=== PATIENT | male | born 1940 | race Hispanic/Latino ===

== ENCOUNTER 2021-10-01 12:33 | Inpatient (IN) | payer OTHER, MEDICARE ==
[2021-10-01] VITALS (13 sets, daily range): BP systolic 118–163; BP diastolic 44–90
[~2021-10-01] VITALS: Ht 167.6 cm; Wt 66.5 kg
[2021-10-01] MEDS ORDERED: 0.9%NACL 1000ML 1,000 ML IV SCH ×2 (13:00→15:00)
[2021-10-01 13:30] LABS: POTASSIUM 4.9 mmol/L (3.5-5.1)
[2021-10-01 13:34] LABS: ALBUMIN 2.9 g/dL (3.5-5.0); TOTAL PROTEIN, SERUM 6.5 g/dL (6.0-8.3)
[2021-10-01 13:36] LABS: INR 0.99 (0.85-1.15); PROTHROMBIN TIME 10.8 SEC (9.6-11.6)
[2021-10-01 13:38] LABS: PARTIAL THROMBOPLASTIN TIME 41.9 SEC (26.3-35.5)
[2021-10-01 13:39] LABS: BASOPHILS % (AUTO) 0.3 % (0.0-5.0); EOSINOPHILS % (AUTO) 0.1 % (0.0-8.0); HEMATOCRIT 31.9 % (42-54); LYMPHOCYTES % (AUTO) 6.1 % (21.0-51.0); MEAN CORPUSCULAR HGB CONC 32.6 g/dL (32.0-36.0); MEAN CORPUSCULAR VOLUME 88.9 fL (79-99); MONOCYTES % (AUTO) 10.8 % (3.0-13.0); NEUTROPHILS % (AUTO) 80.2 % (40.0-77.0); PLATELET COUNT (AUTO) 264 K/uL (130-400); RED BLOOD CELL COUNT(AUTO) 3.59 MIL/uL (4.50-6.20); WHITE BLOOD COUNT (AUTO) 23.6 K/uL (4.8-10.8)
[2021-10-01] MEDS ORDERED: NITROGLYCERIN 1GM OINT 1 INCH/1GM TD ONE (14:00)
[2021-10-01] MEDS ORDERED: ASPIRIN 325MG TAB PO ONE (14:00)
[2021-10-01] MEDS ORDERED: CEFTRIAXONE 1G VIAL IVP ONE (14:00)
[2021-10-01] MEDS ORDERED: ASPIRIN 325MG TAB ONE (14:10)
[2021-10-01] MEDS ORDERED: CEFTRIAXONE 1G VIAL ONE (14:10)
[2021-10-01 14:26] LABS: ABG BASE EXCESS -12.6 mmol/L (-2.0-3.0); ABG HCO3 12.5 mmol/L (21.0-28.0); ABG OXYGEN SATURATION 95.9 % (95.0-99.0); ABG PCO2 26 mmHg (35-48)
[2021-10-01] MEDS ORDERED: PANTOPRAZOLE 40 MG/VIAL IVP ONE (15:00)
[2021-10-01] MEDS ORDERED: ACETAMINOPHEN 650 MG SUPPOSITORY RC PRN (15:00)
[2021-10-01] MEDS: SODIUM BICARB 8.4% 50ML SYRINGE IVP SCH (15:00)
[2021-10-01] MEDS ORDERED: ONDANSETRON 4MG INJ IVP PRN (15:00)
[2021-10-01] MEDS ORDERED: 0.9%NACL 1000ML 1,275 ML IV ONE (15:00)
[2021-10-01] MEDS ORDERED: NOREPINEPHRIN 4MG/NS 250ML 250 ML IV PRN (15:00)
[2021-10-01] MEDS ORDERED: SODIUM BICARB 50MEQ 50ML VIAL 100 ML ONE (15:10)
[2021-10-01] MEDS: CEFEPIME HCL 1 GM VIAL IVP SCH (15:27)
[2021-10-01 15:30] LABS: APPEARANCE,URINE CLOUDY (CLEAR); BILIRUBIN,URINE NEGATIVE (NEGATIVE); COLOR,URINE YELLOW (YELLOW); GLUCOSE, URINE (UA) NEGATIVE (NEGATIVE); KETONES,URINE NEGATIVE (NEGATIVE); LEUKOCYTE ESTERASE ,URINE MODERATE (NEGATIVE); NITRATE,URINE NEGATIVE (NEGATIVE); OCCULT BLOOD,URINE LARGE (NEGATIVE); PH,URINE 5.5 (5.0-8.0); PROTEIN,URINE TRACE mg/dL (NEGATIVE); UROBILINOGEN,URINE 0.2 mg/dL (0.2-1.0)
[2021-10-01 15:49] LABS: BACTERIA,URINE Moderate /HPF (None Seen); MUCUS,URINE Few LPF (None Seen); SQUAMOUS EPITHELIAL CELL,UR Few /HPF (0-2); WBC,URINE 26-50 /HPF (0-1)
[2021-10-01] MEDS ORDERED: SODIUM BICARB 8.4% 50ML SYRING 150 MEQ in DEXTROSE 5%-WATER 1,000 ML IVP SCH (17:00)
[2021-10-01] MEDS: 0.9%NACL 1000ML 1,000 ML IV SCH ×2 (17:10→18:13)
[2021-10-01 17:58] LABS: CREATININE,URINE RANDOM 34 mg/dL (30-135); SODIUM,URINE RANDOM 50 mmol/l (40-220)
[2021-10-01 21:19] LABS: ABG BASE EXCESS -11.1 mmol/L (-2.0-3.0); ABG HCO3 13.5 mmol/L (21.0-28.0); ABG OXYGEN SATURATION 86.8 % (95.0-99.0); ABG PCO2 26 mmHg (35-48)
[2021-10-01] MEDS ORDERED: IPRATROPIUM 0.5 MG/2.5 ML INH IH ONE (21:22)
[2021-10-01] MEDS: TAMSULOSIN HCL 0.4 MG CAP.ER.24H PO SCH (21:44)
[2021-10-01] MEDS: METRONIDAZOLE 500MG/100ML BAG 100 ML IVPB SCH (21:45)
[2021-10-01] MEDS ORDERED: SODIUM BICARB 50MEQ 50ML VIAL IV ONE (22:00)
[2021-10-01] MEDS ORDERED: ALBUTEROL 0.083% 2.5 MG/3 ML INH IH SCH (22:00)
[2021-10-01] MEDS ORDERED: FUROSEMIDE 40MG VIAL IV ONE (22:00)
[2021-10-01] MEDS ORDERED: ZIPRASIDONE MESYLATE 20 MG/VIAL IM ONE (22:10)
[2021-10-01] MEDS ORDERED: IPRATROPIUM 0.5 MG/2.5 ML INH IH SCH (23:00)
[2021-10-01] MEDS ORDERED: SOLU-MEDROL 125MG VIAL IVP ONE (23:00)
[2021-10-01] MEDS ORDERED: SOLU-MEDROL 125MG VIAL ONE (23:30)
[2021-10-01] MEDS: ACETAMINOPHEN 325 MG TAB PO PRN (23:35)
[2021-10-01] MEDS ORDERED: IPRATROPIUM/ALBUTEROL SULFATE 3 ML SOLUTION IH PRN (23:45)
[2021-10-02] VITALS (71 sets, daily range): BP systolic 100–165; BP diastolic 34–114
[2021-10-02] MEDS ORDERED: IPRATROPIUM 0.5 MG/2.5 ML INH IH SCH
[2021-10-02 02:07] LABS: ABG BASE EXCESS -1.7 mmol/L (-2.0-3.0); ABG HCO3 21.2 mmol/L (21.0-28.0); ABG OXYGEN SATURATION 98.6 % (95.0-99.0); ABG PCO2 30 mmHg (35-48)
[2021-10-02] MEDS ORDERED: 0.9%NACL 1000ML 1,000 ML IV SCH (03:30)
[2021-10-02] MEDS: CEFEPIME HCL 1 GM VIAL IVP SCH ×2 (03:42→17:05)
[2021-10-02 04:43] LABS: BASOPHILS % (AUTO) 0.2 % (0.0-5.0); EOSINOPHILS % (AUTO) 0.2 % (0.0-8.0); HEMATOCRIT 30.1 % (42-54); LYMPHOCYTES % (AUTO) 1.3 % (21.0-51.0); MEAN CORPUSCULAR HEMOGLOBIN 29.2 pg (27.0-33.0); MEAN CORPUSCULAR HGB CONC 33.2 g/dL (32.0-36.0); MONOCYTES % (AUTO) 2.9 % (3.0-13.0); NEUTROPHILS % (AUTO) 94.5 % (40.0-77.0); PLATELET COUNT (AUTO) 254 K/uL (130-400); RED BLOOD CELL COUNT(AUTO) 3.42 MIL/uL (4.50-6.20)
[2021-10-02] MEDS: SOLU-MEDROL 40MG VIAL IVP SCH ×4 (04:46→21:59)
[2021-10-02] MEDS: METRONIDAZOLE 500MG/100ML BAG 100 ML IVPB SCH ×3 (04:58→21:58)
[2021-10-02 05:06] LABS: CREATININE 3.8 mg/dL (0.5-1.5); MAGNESIUM 1.7 mg/dL (1.80-2.40); PHOSPHORUS 4.5 mg/dL (2.5-4.9); POTASSIUM 3.5 mmol/L (3.5-5.1); THYROID STIMULATING HORMONE 3.4 uIU/mL (0.36-3.74)
[2021-10-02 05:13] LABS: % IRON SATURATION 7.3 % (30-44)
[2021-10-02 05:17] LABS: BAND NEUTROPHILS % (MANUAL) 23 % (0-2); LYMPHOCYTES % (MANUAL) 4 % (22-44); MAN.DIFF COMMENT-IMPRESSION MANUAL DIFFERENTIAL; MONOCYTES % (MANUAL) 1 % (2-9); PLATELET MORPHOLOGY COMMENT ADEQUATE; SEGMENTED NEUTROPHILS % 72 % (40-70)
[2021-10-02] MEDS: MAGNESIUM 2GM PREMIX 50ML 50 ML IV SCH (06:17)
[2021-10-02] MEDS: PANTOPRAZOLE 40 MG/VIAL IVP SCH (08:32)
[2021-10-02] MEDS: ENOXAPARIN SODIUM 30 MG/0.3 ML SQ SCH (08:33)
[2021-10-02] MEDS: SODIUM BICARB 8.4% 50ML SYRINGE IVP SCH (15:00)
[2021-10-02] MEDS: TAMSULOSIN HCL 0.4 MG CAP.ER.24H PO SCH (20:01)
[2021-10-03] VITALS (30 sets, daily range): BP systolic 103–155; BP diastolic 38–78
[2021-10-03] MEDS: CEFEPIME HCL 1 GM VIAL IVP SCH ×2 (02:43→13:34)
[2021-10-03 04:12] LABS: HEMATOCRIT 28.4 % (42-54); MEAN CORPUSCULAR HEMOGLOBIN 29.1 pg (27.0-33.0); MEAN CORPUSCULAR HGB CONC 32.7 g/dL (32.0-36.0); MEAN CORPUSCULAR VOLUME 88.8 fL (79-99); RED BLOOD CELL COUNT(AUTO) 3.2 MIL/uL (4.50-6.20); RED CELL DISTRIBUTION WIDTH 14.1 % (11.0-15.5)
[2021-10-03 04:38] LABS: CREATININE 3.5 mg/dL (0.5-1.5); MAGNESIUM 2.6 mg/dL (1.80-2.40)
[2021-10-03 04:40] LABS: WHITE BLOOD COUNT (AUTO) 37.3 K/uL (4.8-10.8)
[2021-10-03] MEDS: METRONIDAZOLE 500MG/100ML BAG 100 ML IVPB SCH ×3 (05:04→21:54)
[2021-10-03] MEDS: SOLU-MEDROL 40MG VIAL IVP SCH ×3 (05:04→15:30)
[2021-10-03] MEDS ORDERED: INSULIN HUMULIN R 100 UNIT/ML 3ML ONE (05:34)
[2021-10-03] MEDS: INSULIN HUMULIN R 100 UNIT/ML 3ML SQ SCH ×4 (05:38→21:56)
[2021-10-03] MEDS: PANTOPRAZOLE 40 MG/VIAL IVP SCH (10:39)
[2021-10-03] MEDS: ENOXAPARIN SODIUM 30 MG/0.3 ML SQ SCH (10:40)
[2021-10-03] MEDS ORDERED: LEVOFLOXACIN 500 MG/D5W 100 ML 100 ML IV SCH (11:30)
[2021-10-03] MEDS: PHARMACY COMMUNICATION MISC SCH ×3 (12:00→20:00)
[2021-10-03] MEDS: SODIUM BICARB 8.4% 50ML SYRINGE IVP SCH (14:44)
[2021-10-03] MEDS ORDERED: SODIUM BICARB 50MEQ 50ML VIAL IV SCH (18:30)
[2021-10-03] MEDS: TAMSULOSIN HCL 0.4 MG CAP.ER.24H PO SCH (20:24)
[2021-10-03] MEDS: SODIUM BICARBONATE 650 MG TAB PO SCH (20:24)
[2021-10-04 03:02] VITALS: BP 145/70
[2021-10-04] MEDS: CEFEPIME HCL 1 GM VIAL IVP SCH ×2 (03:22→15:41)
[2021-10-04 03:52] LABS: BASOPHILS % (AUTO) 0.1 % (0.0-5.0); LYMPHOCYTES % (AUTO) 2.1 % (21.0-51.0); MEAN CORPUSCULAR HEMOGLOBIN 28.8 pg (27.0-33.0); MEAN CORPUSCULAR HGB CONC 32.8 g/dL (32.0-36.0); MEAN CORPUSCULAR VOLUME 87.9 fL (79-99); MONOCYTES % (AUTO) 3.1 % (3.0-13.0); NEUTROPHILS % (AUTO) 93.3 % (40.0-77.0); PLATELET COUNT (AUTO) 250 K/uL (130-400); RED CELL DISTRIBUTION WIDTH 14.1 % (11.0-15.5)
[2021-10-04 03:57] LABS: WHITE BLOOD COUNT (AUTO) 32.8 K/uL (4.8-10.8)
[2021-10-04] MEDS: PHARMACY COMMUNICATION MISC SCH ×4 (04:00→08:55)
[2021-10-04 04:10] LABS: CREATININE 2.9 mg/dL (0.5-1.5); MAGNESIUM 2.4 mg/dL (1.80-2.40); PHOSPHORUS 3.7 mg/dL (2.5-4.9); POTASSIUM 3.8 mmol/L (3.5-5.1)
[2021-10-04 04:43] LABS: LYMPHOCYTES % (MANUAL) 3 % (22-44); MAN.DIFF COMMENT-IMPRESSION MANUAL DIFFERENTIAL; SEGMENTED NEUTROPHILS % 97 % (40-70)
[2021-10-04 04:44] LABS: PLATELET MORPHOLOGY COMMENT ADEQUATE
[2021-10-04] MEDS: SOLU-MEDROL 40MG VIAL IVP SCH ×2 (04:55→16:49)
[2021-10-04] MEDS: METRONIDAZOLE 500MG/100ML BAG 100 ML IVPB SCH ×2 (05:07→15:41)
[2021-10-04] MEDS: INSULIN HUMULIN R 100 UNIT/ML 3ML SQ SCH ×4 (05:35→21:21)
[2021-10-04] MEDS ORDERED: INSULIN GLARGINE 100 UNITS/ML 10 ML VIAL SQ ONE (06:00)
[2021-10-04 07:38] VITALS: BP 139/80
[2021-10-04] MEDS: PANTOPRAZOLE 40 MG/VIAL IVP SCH (09:05)
[2021-10-04] MEDS: SODIUM BICARBONATE 650 MG TAB PO SCH ×2 (09:06→21:03)
[2021-10-04] MEDS: ENOXAPARIN SODIUM 30 MG/0.3 ML SQ SCH (09:06)
[2021-10-04 11:52] VITALS: BP 166/96
[2021-10-04] MEDS: SODIUM BICARB 8.4% 50ML SYRINGE IVP SCH (15:00)
[2021-10-04 16:28] VITALS: BP 146/77
[2021-10-04] MEDS ORDERED: LEVOFLOXACIN 500 MG/D5W 100 ML 100 ML IV SCH (17:00)
[2021-10-04] MEDS ORDERED: LEVO5TAB13 PO (17:19)
[2021-10-04] MEDS ORDERED: ALLO100T PO (17:19)
[2021-10-04] MEDS ORDERED: TAMS-1 PO (17:19)
[2021-10-04] MEDS ORDERED: LEVO75CA5 PO (17:19)
[2021-10-04] MEDS ORDERED: AMLO-258 PO (17:19)
[2021-10-04] MEDS ORDERED: AMLODIPINE 5 MG TAB PO ONE (17:30)
[2021-10-04 19:00] VITALS: BP 182/78
[2021-10-04] MEDS: TAMSULOSIN HCL 0.4 MG CAP.ER.24H PO SCH (21:03)
[2021-10-04] MEDS: INSULIN GLARGINE 100 UNITS/ML 10 ML VIAL SQ SCH (21:22)
[2021-10-05] VITALS: BP 159/72
[2021-10-05 03:03] VITALS: BP 145/78
[2021-10-05 03:36] LABS: BASOPHILS % (AUTO) 0.2 % (0.0-5.0); HEMATOCRIT 30.9 % (42-54); LYMPHOCYTES % (AUTO) 2.6 % (21.0-51.0); MEAN CORPUSCULAR HEMOGLOBIN 28.6 pg (27.0-33.0); MEAN CORPUSCULAR VOLUME 89.3 fL (79-99); MONOCYTES % (AUTO) 3.2 % (3.0-13.0); PLATELET COUNT (AUTO) 234 K/uL (130-400); RED BLOOD CELL COUNT(AUTO) 3.46 MIL/uL (4.50-6.20)
[2021-10-05 04:05] LABS: CREATININE 2.3 mg/dL (0.5-1.5); MAGNESIUM 1.8 mg/dL (1.80-2.40); PHOSPHORUS 3.3 mg/dL (2.5-4.9)
[2021-10-05] MEDS: LEVOTHYROXINE 75 MCG TABLET PO SCH (05:42)
[2021-10-05] MEDS: SOLU-MEDROL 40MG VIAL IVP SCH ×2 (05:42→16:09)
[2021-10-05] MEDS: INSULIN GLARGINE 100 UNITS/ML 10 ML VIAL SQ SCH ×2 (06:01→21:09)
[2021-10-05] MEDS: INSULIN HUMULIN R 100 UNIT/ML 3ML SQ SCH ×4 (06:02→21:09)
[2021-10-05 07:39] VITALS: BP 142/73
[2021-10-05] MEDS: SODIUM BICARB 8.4% 50ML SYRINGE IVP SCH (08:04)
[2021-10-05] MEDS: PANTOPRAZOLE 40 MG/VIAL IVP SCH (08:52)
[2021-10-05] MEDS: MAGNESIUM 2GM PREMIX 50ML 50 ML IV SCH (08:52)
[2021-10-05] MEDS: ALLOPURINOL 100 MG TABLET PO SCH (08:52)
[2021-10-05] MEDS: SODIUM BICARBONATE 650 MG TAB PO SCH ×2 (08:52→21:08)
[2021-10-05] MEDS: ENOXAPARIN SODIUM 30 MG/0.3 ML SQ SCH (08:53)
[2021-10-05] MEDS: AMLODIPINE 5 MG TAB PO SCH (08:53)
[2021-10-05] MEDS: TAMSULOSIN HCL 0.4 MG CAP.ER.24H PO SCH ×2 (08:53→21:07)
[2021-10-05 11:18] VITALS: BP 160/69
[2021-10-05 15:31] VITALS: BP 154/76
[2021-10-05] MEDS: LEVOFLOXACIN 250 MG/D5W 50ML 50 ML IVPB SCH (16:09)
[2021-10-05 19:03] VITALS: BP 133/63
[2021-10-06] VITALS (7 sets, daily range): BP systolic 136–157; BP diastolic 72–80
[2021-10-06 04:22] LABS: BASOPHILS % (AUTO) 0.4 % (0.0-5.0); HEMATOCRIT 33.7 % (42-54); LYMPHOCYTES % (AUTO) 5.7 % (21.0-51.0); MEAN CORPUSCULAR HEMOGLOBIN 28.4 pg (27.0-33.0); MEAN CORPUSCULAR HGB CONC 31.2 g/dL (32.0-36.0); MEAN CORPUSCULAR VOLUME 91.1 fL (79-99); MONOCYTES % (AUTO) 5.1 % (3.0-13.0); NEUTROPHILS % (AUTO) 84.3 % (40.0-77.0); PLATELET COUNT (AUTO) 215 K/uL (130-400); RED CELL DISTRIBUTION WIDTH 13.7 % (11.0-15.5); WHITE BLOOD COUNT (AUTO) 16.5 K/uL (4.8-10.8)
[2021-10-06 04:34] LABS: ALBUMIN 2.3 g/dL (3.5-5.0); CREATININE 2.2 mg/dL (0.5-1.5); MAGNESIUM 2.4 mg/dL (1.80-2.40); PHOSPHORUS 3.1 mg/dL (2.5-4.9); POTASSIUM 3.9 mmol/L (3.5-5.1); TOTAL PROTEIN, SERUM 6.1 g/dL (6.0-8.3)
[2021-10-06] MEDS: LEVOTHYROXINE 75 MCG TABLET PO SCH (06:18)
[2021-10-06] MEDS: SOLU-MEDROL 40MG VIAL IVP SCH ×2 (06:18→16:49)
[2021-10-06] MEDS: INSULIN HUMULIN R 100 UNIT/ML 3ML SQ SCH ×4 (06:19→22:07)
[2021-10-06] MEDS: INSULIN GLARGINE 100 UNITS/ML 10 ML VIAL SQ SCH ×2 (06:20→22:08)
[2021-10-06] MEDS: SODIUM BICARBONATE 650 MG TAB PO SCH (07:04)
[2021-10-06] MEDS: ALLOPURINOL 100 MG TABLET PO SCH (08:13)
[2021-10-06] MEDS: ENOXAPARIN SODIUM 30 MG/0.3 ML SQ SCH (08:13)
[2021-10-06] MEDS: PANTOPRAZOLE 40 MG/VIAL IVP SCH (08:13)
[2021-10-06] MEDS: TAMSULOSIN HCL 0.4 MG CAP.ER.24H PO SCH ×2 (08:13→22:04)
[2021-10-06] MEDS: AMLODIPINE 5 MG TAB PO SCH (08:13)
[2021-10-06] MEDS: SODIUM BICARB 8.4% 50ML SYRINGE IVP SCH (11:10)
[2021-10-06 15:50] LABS: CHLORIDE,URINE RANDOM 49 mmol/L (110-250); CREATININE,URINE RANDOM 45 mg/dL (30-135); POTASSIUM,URINE RANDOM 20 mmol/L (25-125); SODIUM,URINE RANDOM 55 mmol/l (40-220)
[2021-10-06] MEDS: LEVOFLOXACIN 250 MG/D5W 50ML 50 ML IVPB SCH (16:49)
[2021-10-07] VITALS: BP 149/78
[2021-10-07 03:27] LABS: BASOPHILS % (AUTO) 0.5 % (0.0-5.0); HEMATOCRIT 34.9 % (42-54); LYMPHOCYTES % (AUTO) 4.7 % (21.0-51.0); MEAN CORPUSCULAR HGB CONC 31.2 g/dL (32.0-36.0); MEAN CORPUSCULAR VOLUME 92.8 fL (79-99); MONOCYTES % (AUTO) 5.1 % (3.0-13.0); NEUTROPHILS % (AUTO) 83.1 % (40.0-77.0); PLATELET COUNT (AUTO) 217 K/uL (130-400); RED BLOOD CELL COUNT(AUTO) 3.76 MIL/uL (4.50-6.20); RED CELL DISTRIBUTION WIDTH 13.5 % (11.0-15.5); WHITE BLOOD COUNT (AUTO) 19.2 K/uL (4.8-10.8)
[2021-10-07 03:43] LABS: ALBUMIN 2.4 g/dL (3.5-5.0); CREATININE 2.1 mg/dL (0.5-1.5); MAGNESIUM 2.1 mg/dL (1.80-2.40); PHOSPHORUS 3.8 mg/dL (2.5-4.9); POTASSIUM 4.3 mmol/L (3.5-5.1); TOTAL PROTEIN, SERUM 5.9 g/dL (6.0-8.3)
[2021-10-07 04:00] VITALS: BP 151/74
[2021-10-07] MEDS: SOLU-MEDROL 40MG VIAL IVP SCH ×2 (06:28→16:19)
[2021-10-07] MEDS: LEVOTHYROXINE 75 MCG TABLET PO SCH (06:31)
[2021-10-07] MEDS: INSULIN GLARGINE 100 UNITS/ML 10 ML VIAL SQ SCH ×2 (06:39→20:34)
[2021-10-07] MEDS: INSULIN HUMULIN R 100 UNIT/ML 3ML SQ SCH ×4 (06:40→20:35)
[2021-10-07 07:34] VITALS: BP 153/80
[2021-10-07] MEDS: PANTOPRAZOLE 40 MG/VIAL IVP SCH (07:45)
[2021-10-07] MEDS: TAMSULOSIN HCL 0.4 MG CAP.ER.24H PO SCH ×2 (07:45→20:32)
[2021-10-07] MEDS: AMLODIPINE 5 MG TAB PO SCH (07:45)
[2021-10-07] MEDS: ALLOPURINOL 100 MG TABLET PO SCH (07:45)
[2021-10-07] MEDS: ENOXAPARIN SODIUM 30 MG/0.3 ML SQ SCH (07:46)
[2021-10-07 09:16] LABS: HEMOGLOBIN A1C 8.2 % (4.0-6.0)
[2021-10-07 11:17] VITALS: BP 137/81
[2021-10-07 15:29] VITALS: BP 157/79
[2021-10-07] MEDS: LEVOFLOXACIN 250 MG/D5W 50ML 50 ML IVPB SCH (16:19)
[2021-10-07 20:00] VITALS: BP 148/75
[2021-10-07] MEDS: ACETAMINOPHEN 325 MG TAB PO PRN (20:32)
[2021-10-08] VITALS (7 sets, daily range): BP systolic 121–160; BP diastolic 70–86
[2021-10-08 03:56] LABS: BASOPHILS % (AUTO) 0.6 % (0.0-5.0); HEMATOCRIT 38.5 % (42-54); LYMPHOCYTES % (AUTO) 6.5 % (21.0-51.0); MEAN CORPUSCULAR HEMOGLOBIN 28.6 pg (27.0-33.0); MEAN CORPUSCULAR HGB CONC 30.6 g/dL (32.0-36.0); MEAN CORPUSCULAR VOLUME 93.2 fL (79-99); MONOCYTES % (AUTO) 5.2 % (3.0-13.0); NEUTROPHILS % (AUTO) 80.5 % (40.0-77.0); NUCLEATED RED BLOOD CELLS 0.1 % (0.0-0.19); PLATELET COUNT (AUTO) 244 K/uL (130-400); RED BLOOD CELL COUNT(AUTO) 4.13 MIL/uL (4.50-6.20); RED CELL DISTRIBUTION WIDTH 13.4 % (11.0-15.5); WHITE BLOOD COUNT (AUTO) 23.2 K/uL (4.8-10.8)
[2021-10-08 03:59] LABS: ALBUMIN 2.4 g/dL (3.5-5.0); CREATININE 2.1 mg/dL (0.5-1.5); POTASSIUM 4.3 mmol/L (3.5-5.1); TOTAL PROTEIN, SERUM 5.9 g/dL (6.0-8.3)
[2021-10-08 04:05] LABS: B-TYPE NATRIURETIC PEPTIDE 139 pg/mL (0-100)
[2021-10-08] MEDS: SOLU-MEDROL 40MG VIAL IVP SCH (06:07)
[2021-10-08] MEDS: INSULIN HUMULIN R 100 UNIT/ML 3ML SQ SCH ×3 (06:11→17:31)
[2021-10-08] MEDS: INSULIN GLARGINE 100 UNITS/ML 10 ML VIAL SQ SCH ×2 (06:11→20:29)
[2021-10-08] MEDS: LEVOTHYROXINE 75 MCG TABLET PO SCH (06:11)
[2021-10-08] MEDS: PANTOPRAZOLE 40 MG/VIAL IVP SCH (09:25)
[2021-10-08] MEDS: TAMSULOSIN HCL 0.4 MG CAP.ER.24H PO SCH ×2 (09:26→20:21)
[2021-10-08] MEDS: ALLOPURINOL 100 MG TABLET PO SCH (09:26)
[2021-10-08] MEDS: AMLODIPINE 5 MG TAB PO SCH (09:26)
[2021-10-08] MEDS: ENOXAPARIN SODIUM 30 MG/0.3 ML SQ SCH (09:26)
[2021-10-08] MEDS: LEVOFLOXACIN 250 MG/D5W 50ML 50 ML IVPB SCH (17:30)
[2021-10-08] MEDS: DEXTROSE 5%-WATER 1,000 ML IV SCH (17:34)
[2021-10-09 00:03] VITALS: BP 138/76
[2021-10-09] MEDS: INSULIN HUMULIN R 100 UNIT/ML 3ML SQ SCH ×4 (01:25→17:56)
[2021-10-09 03:03] VITALS: BP 135/68
[2021-10-09 04:00] LABS: BASOPHILS % (AUTO) 0.5 % (0.0-5.0); EOSINOPHILS % (AUTO) 0.2 % (0.0-8.0); HEMATOCRIT 34.3 % (42-54); LYMPHOCYTES % (AUTO) 12.1 % (21.0-51.0); MEAN CORPUSCULAR HEMOGLOBIN 28.8 pg (27.0-33.0); MEAN CORPUSCULAR HGB CONC 30.3 g/dL (32.0-36.0); MONOCYTES % (AUTO) 8.5 % (3.0-13.0); NEUTROPHILS % (AUTO) 69.2 % (40.0-77.0); PLATELET COUNT (AUTO) 184 K/uL (130-400); RED BLOOD CELL COUNT(AUTO) 3.61 MIL/uL (4.50-6.20); RED CELL DISTRIBUTION WIDTH 13.4 % (11.0-15.5); WHITE BLOOD COUNT (AUTO) 18.6 K/uL (4.8-10.8)
[2021-10-09 04:13] LABS: ALBUMIN 2.1 g/dL (3.5-5.0); CREATININE 1.8 mg/dL (0.5-1.5); POTASSIUM 3.5 mmol/L (3.5-5.1); TOTAL PROTEIN, SERUM 5.1 g/dL (6.0-8.3)
[2021-10-09] MEDS: DEXTROSE 5%-WATER 1,000 ML IV SCH ×2 (04:55→17:10)
[2021-10-09] MEDS: LEVOTHYROXINE 75 MCG TABLET PO SCH (05:47)
[2021-10-09] MEDS: INSULIN GLARGINE 100 UNITS/ML 10 ML VIAL SQ SCH ×2 (06:31→21:47)
[2021-10-09 08:00] VITALS: BP 146/76
[2021-10-09] MEDS: ENOXAPARIN SODIUM 30 MG/0.3 ML SQ SCH (09:34)
[2021-10-09] MEDS: ALLOPURINOL 100 MG TABLET PO SCH (09:34)
[2021-10-09] MEDS: PANTOPRAZOLE 40 MG/VIAL IVP SCH (09:34)
[2021-10-09] MEDS: PREDNISONE 20 MG TABLET PO SCH (09:34)
[2021-10-09] MEDS: AMLODIPINE 5 MG TAB PO SCH (09:34)
[2021-10-09] MEDS: TAMSULOSIN HCL 0.4 MG CAP.ER.24H PO SCH ×2 (09:34→21:44)
[2021-10-09 11:32] VITALS: BP 136/76
[2021-10-09 16:00] VITALS: BP 135/66
[2021-10-09] MEDS: LEVOFLOXACIN 250 MG/D5W 50ML 50 ML IVPB SCH (16:49)
[2021-10-09 19:03] VITALS: BP 133/73
[2021-10-10] MEDS: INSULIN HUMULIN R 100 UNIT/ML 3ML SQ SCH ×5 (00:01→21:18)
[2021-10-10 00:03] VITALS: BP 143/72
[2021-10-10 04:00] VITALS: BP 137/74
[2021-10-10 04:27] LABS: HEMATOCRIT 33.9 % (42-54); MEAN CORPUSCULAR HEMOGLOBIN 28.5 pg (27.0-33.0); MEAN CORPUSCULAR HGB CONC 30.7 g/dL (32.0-36.0); MEAN CORPUSCULAR VOLUME 92.9 fL (79-99); RED BLOOD CELL COUNT(AUTO) 3.65 MIL/uL (4.50-6.20); RED CELL DISTRIBUTION WIDTH 13.2 % (11.0-15.5); WHITE BLOOD COUNT (AUTO) 18.3 K/uL (4.8-10.8)
[2021-10-10 04:38] LABS: CREATININE 1.6 mg/dL (0.5-1.5); POTASSIUM 3.5 mmol/L (3.5-5.1)
[2021-10-10] MEDS: DEXTROSE 5%-WATER 1,000 ML IV SCH ×2 (05:32→21:27)
[2021-10-10] MEDS: LEVOTHYROXINE 75 MCG TABLET PO SCH (05:34)
[2021-10-10] MEDS: INSULIN GLARGINE 100 UNITS/ML 10 ML VIAL SQ SCH ×2 (06:33→21:26)
[2021-10-10 08:00] VITALS: BP 145/69
[2021-10-10] MEDS: ALLOPURINOL 100 MG TABLET PO SCH (09:00)
[2021-10-10] MEDS: TAMSULOSIN HCL 0.4 MG CAP.ER.24H PO SCH ×2 (09:00→21:22)
[2021-10-10] MEDS: AMLODIPINE 5 MG TAB PO SCH (09:00)
[2021-10-10] MEDS: PREDNISONE 20 MG TABLET PO SCH (09:00)
[2021-10-10] MEDS: ENOXAPARIN SODIUM 30 MG/0.3 ML SQ SCH (09:01)
[2021-10-10] MEDS: PANTOPRAZOLE 40 MG/VIAL IVP SCH (09:01)
[2021-10-10 11:34] VITALS: BP 129/60
[2021-10-10 16:00] VITALS: BP 133/55
[2021-10-10] MEDS: LEVOFLOXACIN 250 MG/D5W 50ML 50 ML IVPB SCH (17:08)
[2021-10-10 19:03] VITALS: BP 141/70
[2021-10-11 00:03] VITALS: BP 144/69
[2021-10-11 03:03] VITALS: BP 132/71
[2021-10-11 04:38] LABS: BASOPHILS % (AUTO) 0.8 % (0.0-5.0); EOSINOPHILS % (AUTO) 0.4 % (0.0-8.0); HEMATOCRIT 34.5 % (42-54); MEAN CORPUSCULAR HEMOGLOBIN 28.8 pg (27.0-33.0); MEAN CORPUSCULAR VOLUME 92.7 fL (79-99); MONOCYTES % (AUTO) 7.4 % (3.0-13.0); NEUTROPHILS % (AUTO) 69.2 % (40.0-77.0); PLATELET COUNT (AUTO) 165 K/uL (130-400); RED BLOOD CELL COUNT(AUTO) 3.72 MIL/uL (4.50-6.20); RED CELL DISTRIBUTION WIDTH 13.4 % (11.0-15.5); WHITE BLOOD COUNT (AUTO) 17.6 K/uL (4.8-10.8)
[2021-10-11 04:52] LABS: ALBUMIN 2.1 g/dL (3.5-5.0); CREATININE 1.6 mg/dL (0.5-1.5); POTASSIUM 3.4 mmol/L (3.5-5.1); TOTAL PROTEIN, SERUM 4.9 g/dL (6.0-8.3)
[2021-10-11] MEDS: LEVOTHYROXINE 75 MCG TABLET PO SCH (06:37)
[2021-10-11] MEDS: INSULIN HUMULIN R 100 UNIT/ML 3ML SQ SCH ×3 (06:38→17:34)
[2021-10-11] MEDS: INSULIN GLARGINE 100 UNITS/ML 10 ML VIAL SQ SCH ×2 (06:39→20:44)
[2021-10-11 07:45] VITALS: BP 140/66
[2021-10-11] MEDS: PANTOPRAZOLE 40 MG/VIAL IVP SCH (07:47)
[2021-10-11] MEDS: ALLOPURINOL 100 MG TABLET PO SCH (07:48)
[2021-10-11] MEDS: ENOXAPARIN SODIUM 30 MG/0.3 ML SQ SCH (07:48)
[2021-10-11] MEDS: TAMSULOSIN HCL 0.4 MG CAP.ER.24H PO SCH ×2 (07:52→20:39)
[2021-10-11] MEDS: PREDNISONE 20 MG TABLET PO SCH (07:52)
[2021-10-11] MEDS: AMLODIPINE 5 MG TAB PO SCH (07:59)
[2021-10-11] MEDS: DEXTROSE 5%-WATER 1,000 ML IV SCH (07:59)
[2021-10-11 11:32] VITALS: BP 134/71
[2021-10-11] MEDS: LEVOFLOXACIN 250 MG/D5W 50ML 50 ML IVPB SCH (15:35)
[2021-10-11 15:56] VITALS: BP 125/68
[2021-10-11 20:27] VITALS: BP 169/69
[2021-10-12] VITALS (19 sets, daily range): BP systolic 100–152; BP diastolic 52–85
[2021-10-12] MEDS: INSULIN HUMULIN R 100 UNIT/ML 3ML SQ SCH ×4 (01:39→18:00)
[2021-10-12 04:19] LABS: BASOPHILS % (AUTO) 0.5 % (0.0-5.0); EOSINOPHILS % (AUTO) 0.4 % (0.0-8.0); HEMATOCRIT 34.6 % (42-54); LYMPHOCYTES % (AUTO) 14.2 % (21.0-51.0); MEAN CORPUSCULAR HGB CONC 31.2 g/dL (32.0-36.0); MEAN CORPUSCULAR VOLUME 92.8 fL (79-99); NEUTROPHILS % (AUTO) 70.5 % (40.0-77.0); PLATELET COUNT (AUTO) 161 K/uL (130-400); RED BLOOD CELL COUNT(AUTO) 3.73 MIL/uL (4.50-6.20); RED CELL DISTRIBUTION WIDTH 13.7 % (11.0-15.5); WHITE BLOOD COUNT (AUTO) 17.7 K/uL (4.8-10.8)
[2021-10-12 04:31] LABS: CREATININE 1.5 mg/dL (0.5-1.5); INR 0.94 (0.85-1.15); MAGNESIUM 1.7 mg/dL (1.80-2.40); POTASSIUM 3.7 mmol/L (3.5-5.1); PROTHROMBIN TIME 10.3 SEC (9.6-11.6)
[2021-10-12 04:32] LABS: PARTIAL THROMBOPLASTIN TIME 29.9 SEC (26.3-35.5)
[2021-10-12] MEDS: LEVOTHYROXINE 75 MCG TABLET PO SCH (06:05)
[2021-10-12] MEDS: INSULIN GLARGINE 100 UNITS/ML 10 ML VIAL SQ SCH ×2 (06:05→22:14)
[2021-10-12] MEDS ORDERED: DEXTROSE 50%-WATER 50 ML DISP.SYRIN IV ONE (06:21)
[2021-10-12] MEDS ORDERED: DEXTROSE 50%-WATER 50 ML DISP.SYRIN IV PRN (06:30)
[2021-10-12] MEDS ORDERED: GLUCAGON 1MG KIT 1 MG ML IM PRN (06:30)
[2021-10-12] MEDS: PREDNISONE 20 MG TABLET PO SCH (08:19)
[2021-10-12] MEDS: ALLOPURINOL 100 MG TABLET PO SCH (08:19)
[2021-10-12] MEDS: AMLODIPINE 5 MG TAB PO SCH (08:19)
[2021-10-12] MEDS: TAMSULOSIN HCL 0.4 MG CAP.ER.24H PO SCH ×2 (08:19→22:11)
[2021-10-12] MEDS: ENOXAPARIN SODIUM 30 MG/0.3 ML SQ SCH (08:20)
[2021-10-12] MEDS: PANTOPRAZOLE 40 MG/VIAL IVP SCH (09:07)
[2021-10-12] MEDS: DEXTROSE 5%-WATER 1,000 ML IV SCH ×2 (11:50→15:50)
[2021-10-12] MEDS ORDERED: PROPOFOL 10 MG/ML 20ML VIAL IV ONE (12:31)
[2021-10-12] MEDS: LEVOFLOXACIN 250 MG/D5W 50ML 50 ML IVPB SCH (16:16)
[2021-10-13] VITALS (7 sets, daily range): BP systolic 106–154; BP diastolic 52–78
[2021-10-13 04:24] LABS: HEMATOCRIT 34.7 % (42-54); MEAN CORPUSCULAR HGB CONC 30.5 g/dL (32.0-36.0); MEAN CORPUSCULAR VOLUME 94.8 fL (79-99); RED BLOOD CELL COUNT(AUTO) 3.66 MIL/uL (4.50-6.20); RED CELL DISTRIBUTION WIDTH 14.1 % (11.0-15.5); WHITE BLOOD COUNT (AUTO) 19.5 K/uL (4.8-10.8)
[2021-10-13 04:39] LABS: ALBUMIN 2.1 g/dL (3.5-5.0); CREATININE 1.4 mg/dL (0.5-1.5); TOTAL PROTEIN, SERUM 5.1 g/dL (6.0-8.3)
[2021-10-13] MEDS: LEVOTHYROXINE 75 MCG TABLET PO SCH (05:30)
[2021-10-13] MEDS: INSULIN HUMULIN R 100 UNIT/ML 3ML SQ SCH ×4 (06:00→17:44)
[2021-10-13] MEDS: INSULIN GLARGINE 100 UNITS/ML 10 ML VIAL SQ SCH ×2 (07:30→20:36)
[2021-10-13] MEDS: PANTOPRAZOLE 40 MG/VIAL IVP SCH (09:37)
[2021-10-13] MEDS: TAMSULOSIN HCL 0.4 MG CAP.ER.24H PO SCH ×2 (09:37→20:27)
[2021-10-13] MEDS: ENOXAPARIN SODIUM 30 MG/0.3 ML SQ SCH (09:37)
[2021-10-13] MEDS: PREDNISONE 20 MG TABLET PO SCH (09:37)
[2021-10-13] MEDS: ALLOPURINOL 100 MG TABLET PO SCH (09:38)
[2021-10-13] MEDS: AMLODIPINE 5 MG TAB PO SCH (09:38)
[2021-10-13] MEDS: LEVOFLOXACIN 250 MG/D5W 50ML 50 ML IVPB SCH (17:30)
[2021-10-14 00:03] VITALS: BP 113/65
== END 2021-10-13 22:00 | DRG 871 ==
LOC: EDH 12:33 → INTOOBSV 14:32 → EDHIP 14:32 → OBSVTOIN 14:32 → 2CH 20:19 → 2DH 10-03 10:29
PROVIDERS: ADMIT Internal Medicine Pulmonary Disease; ATTEND Internal Medicine Pulmonary Disease
PROC: 0B9D8ZX Drainage of Right Middle Lung Lobe, Via Natural or Artificial Opening Endoscopic, Diagnostic (ICD-10-PCS; principal; 2021-10-01)
PROC: 02HV33Z Insertion of Infusion Device into Superior Vena Cava, Percutaneous Approach (ICD-10-PCS; 2021-10-01)
PROC: B548ZZA Ultrasonography of Superior Vena Cava, Guidance (ICD-10-PCS; 2021-10-01)
PROC: 5A09357 Assistance with Respiratory Ventilation, Less than 24 Consecutive Hours, Continuous Positive Airway Pressure (ICD-10-PCS; 2021-10-01)
PROC: 5A09357 Assistance with Respiratory Ventilation, Less than 24 Consecutive Hours, Continuous Positive Airway Pressure (ICD-10-PCS; 2021-10-02)
PROC: 5A09357 Assistance with Respiratory Ventilation, Less than 24 Consecutive Hours, Continuous Positive Airway Pressure (ICD-10-PCS; 2021-10-03)
DX: A41.51 Sepsis due to Escherichia coli [E. coli] (principal); I21.4 Non-ST elevation (NSTEMI) myocardial infarction; J69.0 Pneumonitis due to inhalation of food and vomit; R65.21 Severe sepsis with septic shock; N39.0 Urinary tract infection, site not specified; N17.9 Acute kidney failure, unspecified; E87.2 Acidosis; M62.82 Rhabdomyolysis; E87.0 Hyperosmolality and hypernatremia; Z20.822 Contact with and (suspected) exposure to COVID-19; D64.9 Anemia, unspecified; K57.30 Diverticulosis of large intestine without perforation or abscess without bleeding; N40.0 Benign prostatic hyperplasia without lower urinary tract symptoms; B96.20 Unspecified Escherichia coli [E. coli] as the cause of diseases classified elsewhere; I10 Essential (primary) hypertension; E11.9 Type 2 diabetes mellitus without complications; E78.00 Pure hypercholesterolemia, unspecified; E87.70 Fluid overload, unspecified; J44.9 Chronic obstructive pulmonary disease, unspecified; R13.12 Dysphagia, oropharyngeal phase; R62.7 Adult failure to thrive; Z74.01 Bed confinement status; Z87.442 Personal history of urinary calculi; Z93.1 Gastrostomy status; B96.4 Proteus (mirabilis) (morganii) as the cause of diseases classified elsewhere
CPT/HCPCS: 36415; 36600; 43246; 70450; 71045; 71250; 74176; 74230; 80048; 80053; 81001; 82435; 82436; 82550; 82570; 82803; 82947; 82948; 83036; 83540; 83550; 83605; 83735; 83880; 83935; 84100; 84132; 84133; 84145; 84295; 84300; 84443; 84484; 85018; 85025; 85027; 85378; 85610; 85730; 87040; 87077; 87088; 87186; 87635; 87804; 92610; 92611; 93005; 93306; 93356; 94640; 94660; 94664; 97039; C9113; C9803; G0378; J0692; J0696; J1650; J1815; J1940; J1956; J2704; J2920; J2930; J3475; J3486; J3490; J7030; J7070